=== PATIENT | female | born 1965 | race Asian ===

== ENCOUNTER → 2017-09-17 | Outpatient (CLI) | payer OTHER ==
[2017-09-17 10:32] LABS: HEMATOCRIT 41.3 % (37-47); HEMOGLOBIN 13.7 g/dL (12.0-16.0); LYMPH % 33.1 %; MEAN CORPUSCULAR HEMOGLOBIN 30.9 pg (25-34); MEAN CORPUSCULAR HGB CONC 33.2 g/dl (32-36); MEAN PLATELET VOLUME 12.6 fL (7.4-10.4); NEUT % 58.4 %; PLATELET COUNT 200 K/uL (130-400); RED CELL DISTRIBUTION WIDTH CV 12.6 % (11.5-14.5); RED CELL DISTRIBUTION WIDTH SD 42.6 fL (36.4-46.3); WHITE BLOOD COUNT 5.08 K/uL (4.8-10.8)
[2017-09-17 10:33] LABS: BASO % 0.6 %; BASO ABS # 0.03 K/uL (0-0.2); LYMPH ABS # 1.68 K/uL (1.2-3.4); MONO % 5.9 %; NEUT ABS # 2.97 K/uL (1.4-6.5)
[2017-09-17 12:29] LABS: ALBUMIN 4.1 gm/dl (3.4-5.0); ALT/SGPT 36 U/L (12-78); AST/SGOT 20 U/L (15-37); BLOOD UREA NITROGEN 12 mg/dl (7-18); CALCIUM 9.1 mg/dl (8.5-10.1); CARBON DIOXIDE 26 mmol/L (21-32); CHOLESTEROL 228 mg/dl (0-200); CREATININE 0.48 mg/dl (0.60-1.20); GLUCOSE 95 mg/dl (70-99); POTASSIUM 3.9 mmol/L (3.5-5.1); SODIUM 139 mmol/L (136-145)
[2017-09-17 12:38] LABS: ALKALINE PHOSPHATASE 56 U/L (45-117); LDL CHOLESTEROL CALCULATED 139 mg/dl; TOTAL PROTEIN 7.6 gm/dl (6.4-8.2)
== END | disposition home or self-care (01) ==
LOC: C.LAB1850 09:47
PROVIDERS: ATTEND Neuromusculoskeletal Medicine & OMM
DX: E78.5 Hyperlipidemia, unspecified (principal); E66.3 Overweight

== ENCOUNTER → 2017-09-21 | Outpatient (CLI) | payer OTHER ==
--- NOTE | 2017-09-21 09:49 | DIAGNOSTIC IMAGING REPORT ---
(CHEST) THORAX WITHOUT CT DOSE: 305.32 mGy.cm HISTORY: Chest abnormality ABN FINDING OF LUNG FIELD TECHNIQUE: Multiaxial CT images of the chest were performed without contrast. A dose lowering technique was utilized adhering to the principles of ALARA. COMPARISON: None. FINDINGS: No prior studies of any type are available for comparison. No significant hilar or mediastinal adenopathy within limitations of an unenhanced scan. Several small benign-appearing Nodes bilaterally. Evaluation of lung parenchyma shows a multifocal areas of mild pleural thickening primarily the posterior aspects of the hemithoraces. There are no fibrocalcific changes. Lung bases are considered clear. There is no significant parenchymal nodularity. Minimal scattered atelectatic and interstitial changes present. IMPRESSION: 1. No significant abnormality of the chest. 2. Several scattered areas of benign-appearing pleural thickening. 3. Correlation with any outside radiographs is suggested The above report was generated using voice recognition software. It may contain grammatical, syntax or spelling errors. Electronically signed by: Dirk Hauser M.D. 09/21/2017 9:48 AM Dictated Date/Time: 09/21/2017 9:44 AM
== END | disposition home or self-care (01) ==
LOC: C.CTS 09:30
PROVIDERS: ATTEND Internal Medicine Pulmonary Disease
DX: R91.8 Other nonspecific abnormal finding of lung field (principal)